=== PATIENT | female | born 1995 | race African-American/Black ===

== ENCOUNTER 2020-03-19 12:41 | Outpatient (CLI) | payer MEDICAID, SELFPAY ==
--- NOTE | ~2020-03-19 | US_ITS ---
EXAMINATION: US OB >= 14 weeks Fetus DATE: 03/19/2020 13:09 INDICATION: dating, unknown trimester, no care TECHNIQUE: Real-time ultrasound of the pelvis was performed. COMPARISON: None. FINDINGS: There is a single living fetus in vertex presentation. The placenta is anterior. heart rate is 147 beats per minute (bpm). cardiac activity and movement are noted. The amniotic fluid index is subjectively normal. The following biometric data were obtained: Biparietal diameter (BPD): 3.79 cm; head circumference (HC): 13.45 cm; abdominal circumference (AC): 10.6 cm; femur length (FL): 2.2 cm. These measurements are concordant. Estimated weight is 167 g +/- 25 g, which correlates with the 11th percentile when 08/24/2020 is used as estimated date of delivery. As single measurements, these parameters are each equal to the following estimated gestational ages w ith ranges of +/- 2 standard deviations: BPD: 17 weeks 4 days +/- 1 weeks 1 days. HC: 17 weeks 0 days +/- 1 weeks 1 days. AC: 16 weeks 4 days +/- 1 weeks 5 days. FL: 16 weeks 6 days +/- 1 weeks 3 days. estimated gestational age based solely on measurements from this exam is 17 weeks 0 days +/- 1 weeks 1 days. IMPRESSION: 1. Single living fetus in vertex presentation. 2. Estimated weight is 167 g +/- 25 g, which correlates with the 11th percentile when 08/24/2020 is used as estimated date of delivery. Reviewed, dictated and finalized at location A. GHT RECEIVER IMPRESSION: 1. Single living fetus in vertex presentation. 2. Estimated weight is 167 g +/- 25 g, which correlates with the 11th per centile when 08/24/2020 is used as estimated date of delivery.
== END 2020-03-19 12:42 | disposition home or self-care (01) ==
PROVIDERS: Visit Provider Physician Assistant
DX: Z34.92 Encounter for supervision of normal pregnancy, unspecified, second trimester (principal); Z3A.17 17 weeks gestation of pregnancy
CPT/HCPCS: 76805

== ENCOUNTER 2020-05-16 14:24 | Outpatient (CLI) | payer OTHER, SELFPAY ==
--- NOTE | ~2020-05-16 | US_ITS ---
EXAMINATION: US OB follow up DATE: 05/16/2020 15:13 INDICATION: Supervision of normal second trimester . TECHNIQUE: Real-time ultrasound of the pelvis was performed. The interpreting radiologist was not pre sent for the study. COMPARISON: 03/19/2020 FINDINGS: There is a single living fetus in breech presentation. The placenta is on the left. heart rate is 155 beats per minute (bpm). The amniotic fluid index is 10.7 cm, which is normal (5th%-95%: 9.7- 22.1 cm at 25 weeks estimated gestational age). The following biometric data were obtained: BPD: 6.2 cm -> 25 weeks 2 days Head circumference: 23.9 cm -> 26 weeks 0 days Abdominal circumference: 21.5 cm -> 26 weeks 0 days Femur length: 4.8 cm -> 26 weeks 0 days These measurements are concordant. Head circumference to abdominal circumference ratio: 1.11 (normal range 1.04-1.22). Estimated weight: 874 g (+/-) 131 g. or 1 lbs. 15 oz. (+/-) 5 oz. IMPRESSION: 1. Single living fetus in breech presentation with heart rate of 155 bpm. 2. Normal amniotic fluid index of 10.7 cm. 3. Estimated weight is 50th percentile by Hadlock criteria when 08/24/2020 is used as the estima armin date of delivery (ELISSA). Please correlate with clinical information or earlier ultrasounds for mos t accurate ELISSA. Reviewed, dictated and finalized at location B. IMPRESSION: 1. Single living fetus in breech presentation with heart rate of 155 bpm. 2. Normal amniotic fluid index of 10.7 cm. 3. Estimated weight is 50th percentile by Hadlock criteria when 08/24/2020 is used as the estimated date of delivery (ELISSA). Please correlate with clinica l information or earlier ultrasounds for most accurate ELISSA.
== END 2020-05-16 14:25 | disposition home or self-care (01) ==
PROVIDERS: Visit Provider Physician Assistant
DX: Z36.9 Encounter for antenatal screening, unspecified (principal); Z3A.00 Weeks of gestation of pregnancy not specified
CPT/HCPCS: 76816

== ENCOUNTER 2020-06-13 12:52 | Outpatient (CLI) | payer OTHER, SELFPAY ==
--- NOTE | ~2020-06-13 | US_ITS ---
EXAMINATION: US OB follow up DATE: 06/13/2020 13:36 INDICATION: Encounter for supervision of normal , third trimester TECHNIQUE: Real-time ultrasound of the pelvis was performed. The interpreting radiologist was not pre sent for the study. COMPARISON: 05/16/2020 FINDINGS: There is a single living fetus in breech presentation. The placenta is anterior/fundal. Fet al cardiac activity and movement are noted. heart rate is 155 beats per minute (bpm). The amniotic fluid index is subjectively normal. The following biometric data were obtained: Biparietal diameter (BPD): 7.7 cm; head circumference (HC): 27.1 cm; abdominal circumference (AC): 25 .6 cm; femur length (FL): 5.6 cm. These measurements are concordant. Estimated weight is 1464 g +/- 219 g, which correlates with the 41st percentile when 08/24/2020 is used as estimated date of delivery. As single measurements, these parameters are each equal to the following estimated gestational ages w ith ranges of +/- 2 standard deviations: BPD: 31 weeks 1 days +/- 3 weeks 1 days. HC: 29 weeks 4 days +/- 2 weeks 0 days. AC: 29 weeks 5 days +/- 2 weeks 1 days. FL: 29 weeks 5 days +/- 2 weeks 1 days. estimated gestational age based solely on measurements from this exam is 30 weeks 0 days +/- 2 weeks 1 days. IMPRESSION: 1. Single living fetus in breech presentation. 2. Estimated weight is 1464 g +/- 219 g, which correlates with the 41st percentile when 08/25/19 21 is used as estimated date of delivery. Reviewed, dictated and finalized at location A. IMPRESSION: 1. Single living fetus in breech presentation. 2. Estimated weight is 1464 g +/- 219 g, which correlates with the 41st p ercentile when 08/24/2020 is used as estimated date of delivery.
== END 2020-06-13 12:53 | disposition home or self-care (01) ==
PROVIDERS: Visit Provider Obstetrics & Gynecology
DX: Z34.93 Encounter for supervision of normal pregnancy, unspecified, third trimester (principal); Z3A.30 30 weeks gestation of pregnancy
CPT/HCPCS: 76816

== ENCOUNTER 2020-06-24 11:25 | Outpatient (RCR) | payer OTHER, SELFPAY | END 2020-09-22 23:59 | disposition home or self-care (01) | LOC: ANHLAB 11:25 | PROVIDERS: Visit Provider Physician Assistant | DX: Z01.83 Encounter for blood typing (principal) | CPT/HCPCS: 36415; 85461 ==

== ENCOUNTER 2020-07-30 15:03 | Outpatient (CLI) | payer OTHER, SELFPAY ==
--- NOTE | ~2020-07-30 | US_ITS ---
US OB limited 07/30/2020 16:12 Indication: Evaluate presentation Procedure: High-resolution Limited obstetrical ultrasound Comparison: No prior studies for comparison. Findings: There is a single living intrauterine in breech presentation with heart rat e of 1 36 bpm. Placenta is anterior/fundal. Amniotic fluid is subjectively normal. Impression: 1: Single living intrauterine in breech presentation. Reviewed, dictated and finalized at location B. Impression: 1: Single living intrauterine in breech presentation.
== END 2020-07-30 15:04 | disposition home or self-care (01) ==
LOC: ANHIMG 15:05
PROVIDERS: Visit Provider Physician Assistant
DX: O32.9XX9 Maternal care for malpresentation of fetus, unspecified, other fetus (principal); Z3A.00 Weeks of gestation of pregnancy not specified
CPT/HCPCS: 76815

== ENCOUNTER 2020-08-14 08:35 | Outpatient (RCR) | payer OTHER, SELFPAY ==
--- NOTE | ~2020-08-14 | US_ITS ---
EXAMINATION: US OB follow up w BPP EXAM DATE: 08/14/2020 10:10 INDICATION: Breech, SERGO, BPP and EFW. 3rd trimester. TECHNIQUE: Pelvic obstetrical transabdominal sonogram was performed by a technologist. There are mu ltiple grayscale and Doppler images available for interpretation. Comparison is made to prior examina tion from 07/30/2020. FINDINGS: There is a single fetus identified in breech presentation with a heart rate of 145 beats pe r minute. The placenta is located in the anterior fundal position. There is no sonographic evidence of retroplacental hemorrhage identified. The amniotic fluid index is 16.7 centimeters, which is cameron l. BIOMETRIC DATA: Biparietal diameter (BPD): 9.3 cm --------------> 37 weeks 4 days. Head circumference (HC): 34.8 cm ---------------> 40 weeks 2 days. Abdominal circumference (AC): 34.8 cm ---------> 38 weeks 5 days. Femur length (FL): 7.5 cm ------------------------> 38 weeks 2 days. These measurements are concordant. HC/AC ratio is 1.00 (The 5th -- 95th percentile range is 0.88-1.06. Estimated weight is 3549 g +/- 532 g. This is the 75th percentile when the currently reported clinical gestation age 38 weeks 1 day, clinical estimated date of delivery (ELISSA-OPE) 08/27 is used. Fe vicki estimated gestational age based on measurements from this exam is 38 weeks 5 days, with an estima armin date of delivery (ELISSA-AUA) 08/23. BIOPHYSICAL PROFILE (performed by the technologist) breathing (30 sec sustained breathing in 30 minutes): 2 out of 2 movement (3 gross body movements in 30 minutes): 2 out of 2 tone (one episode of npqvrls-okwmscfvk-ysqdoru limb movement): 2 out of 2 Amniotic fluid pocket (2 cm): 2 out of 2 Total score: 8 out of 8 IMPRESSION: 1. Single fetus with heart rate of 145 bpm. 2. Normal biophysical profile score of 8 out of 8. 3. Estimated weight 3549, 75th percentile using clinical gestational age 38 weeks 1 day. 4. Normal SERGO 16.7 cm. Reviewed, dictated and finalized at location B.
[2020-08-14 09:26] VITALS: BP 99/53; PULSE 101
--- NOTE | 2020-08-14 10:34 | PC.NURSE ---
US results called to Dr Migule
[2020-08-25] MEDS: ceFAZolin SODIUM 1 GM VIAL 2 GM IV PUSH (08:22)
== END 2020-08-23 09:09 | disposition home or self-care (01) ==
LOC: ANHOBOP 08:35
PROVIDERS: Obstetrics & Gynecology; Visit Provider Obstetrics & Gynecology
PROC: 0UT94ZZ Resection of Uterus, Percutaneous Endoscopic Approach (ICD-10-PCS; principal; 2020-08-25 08:00)
DX: O32.1XX0 Maternal care for breech presentation, not applicable or unspecified (principal); Z3A.38 38 weeks gestation of pregnancy
CPT/HCPCS: 59025; 76816; 76819

== ENCOUNTER 2020-08-20 11:20 | Outpatient (CLI) | payer OTHER, SELFPAY ==
--- NOTE | ~2020-08-20 | US_ITS ---
EXAMINATION: US OB limited DATE: 08/20/2020 11:46 INDICATION: Breech presentation during third trimester of . TECHNIQUE: Real-time ultrasound of the pelvis was performed. The interpreting radiologist was not pre sent for the study. COMPARISON: 08/14/2020 FINDINGS: There is a single living fetus remains in breech presentation. The placenta is anterior fundal. Feta l heart rate is 157 beats per minute (bpm). IMPRESSION: 1. Single living fetus in breech presentation with heart rate of 157 bpm. Reviewed, dictated and finalized at location A.
== END 2020-08-20 11:21 | disposition home or self-care (01) ==
PROVIDERS: Visit Provider Physician Assistant
DX: O32.1XX9 Maternal care for breech presentation, other fetus (principal); Z3A.00 Weeks of gestation of pregnancy not specified
CPT/HCPCS: 76815

== ENCOUNTER 2020-08-22 09:57 | Inpatient (IN) | payer OTHER, SELFPAY ==
[2020-08-22] VITALS (54 sets, daily range): BP systolic 80–126; BP diastolic 52–91; PULSE 64–113; RESP 13–18; TEMP 36.3–37.6; O2SAT 97–100; BMI 25.7
--- NOTE | 2020-08-22 09:37 | WPDANESEPPF ---
Anes - Initial Pre Proc Eval Procedure: Operation Date: 08/22/20 12:00 Proposed Procedures p Section - Zeus Dash MD Date/Time: 08/22/20 09:37 Surgeon: Ekta Pre Op Diagnosis: c/s Patient Data Age: 24 Gender: F Height: Weight: Allergies Allergy/AdvReac Type Severity Reaction Status Date / Time No Known Allergies Allergy Verified 08/01/20 12:43 Home Medications Medication Instructions Recorded Confirmed Type PNV cmb#95-ferrous fumarate-FA 1 tablet PO DAILY 08/01/20 08/22/20 History [] ferrous sulfate [Iron (ferrous 325 mg PO DAILY 08/01/20 08/22/20 History sulfate)] omeprazole [Prilosec] 20 mg PO DAILY 08/01/20 08/22/20 History valacyclovir 1,000 mg PO DAILY 08/01/20 08/22/20 History docusate sodium [Colace] 100 mg PO DAILY 08/22/20 08/22/20 History Patient hx anesthesia problems: none Family hx anesthesia problems: none PMFSH Past Medical History Medical History (Updated 08/22/20 @ 10:50 by Shane Crooks DO) GERD (gastroesophageal reflux disease) History of supraventricular tachycardia Palpitations Family History Family History (Updated 08/22/20 @ 10:40 by Pau Weeks RN) Mother Cancer Hypothyroid Father Cancer Social History Social History Substance use: never Gender identity (if verbalized by the patient): Female Spiritual care concerns: No Anes - Eval Final PreProcedure Day of Procedure 08/22/20 09:37 Patient weight: overweight Heart: regular rate and rhythm Lungs: clear to auscultation and normal air movement Airway: Mallampati scale class II Neurological: alert and oriented Last oral intake: >/= 8 hours ASA classification: III Emergent: no Anesthetic plan: proceed Anesthesia type and monitoring: regional spinal and standard monitoring Informed Consent: The patient's anesthetic plan and its attendant risks and benefits were discussed with the patient/family/POA. Questions were solicited and answers provided to the satisfaction of the patient/family/POA.
[2020-08-22] MEDS: LACTATED RINGERS 1,000 ML 125 ML IV CONT ×2 (10:29→11:42)
--- NOTE | 2020-08-22 10:34 | LDADM ---
This patient, Nataly Bruno, was admitted to OB Post 115 on 08/22/20 at 09:57. Plans for labor, pain management and were discussed with patient. Patient/family oriented to hospital policies and general routines including ID bracelet, bed and alarms, visiting hours, pain management, procedures, bathroom and other care routines, personal items, smoking policy, room service/diet and guest tray routines, security routines, and visiting hours. Patient/Family are encouraged to report perceived risks to care and to ask questions if they do not understand what they are told or what they should do. See OBIX for further documentation.
[2020-08-22 10:46] LABS: Basophils Percent Auto 0.3 % (0.2-1.2); Eosinophils Percent Auto 0.3 % (0-4.4); Hematocrit 35.9 % (37.0-47.0); Hemoglobin 11.4 g/dL (12.0-15.0); Immature Granulocyte Absolute 0.06 K/mm3 (0.00-0.031); Immature Granulocyte Percent A 0.7 % (0-0.5); Lymphocytes Absolute Auto 1.47 K/mm3 (0.9-3.2); Lymphocytes Percent Auto 16.4 % (18.3-44.2); Mean Corpuscular HGB Conc 31.8 g/dl (32-36); Mean Corpuscular Hemoglobin 23.9 pg (26-34); Mean Corpuscular Volume 75.4 fl (80-100); Mean Platelet Volume 10.3 fl (7.4-10.4); Monocytes Absolute Auto 0.9 K/mm3 (0.1-0.6); Monocytes Percent Auto 10.1 % (2.6-8.5); Neutrophils Absolute Auto 6.5 K/mm3 (1.3-6.7); Neutrophils Percent Auto 72.2 % (45.5-73.1); Platelet Count Result 283 k/mm3 (150-375); Red Blood Count 4.76 M/mm3 (4.2-5.4); Red Cell Distribution Width 19.7 % (11.5-14.5); White Blood Count 8.9 K/mm3 (4.5-10.0)
--- NOTE | 2020-08-22 10:51 | PC.NURSE ---
Anesthesia has been in to talk to pt. Dr. Dash here now. monitor discontinued. Bedside U/S confirms breech presentation.
--- NOTE | 2020-08-22 10:59 | PM.IMHP ---
H&P: HPI History of Present Illness Date/Time: 08/22/20 10:59 24-year-old 2 para 1001 female presents for section due to breech presentation. Prior vaginal delivery without complication. This also without complication other than breech presentation. Chief Complaint: Review of Systems Review of Systems: All systems reviewed & are unremarkable except as noted in HPI and below PMFSH Past Medical History Medical History GERD (gastroesophageal reflux disease) History of supraventricular tachycardia Palpitations Family History Family History Mother Cancer Hypothyroid Father Cancer Social History Social History Substance use: never Gender identity (if verbalized by the patient): Female Spiritual care concerns: No Meds Home Medications and Allergies Home Medications Medication Instructions Recorded Confirmed Type PNV cmb#95-ferrous fumarate-FA 1 tablet PO DAILY 08/01/20 08/22/20 History [] ferrous sulfate [Iron (ferrous 325 mg PO DAILY 08/01/20 08/22/20 History sulfate)] omeprazole [Prilosec] 20 mg PO DAILY 08/01/20 08/22/20 History valacyclovir 1,000 mg PO DAILY 08/01/20 08/22/20 History docusate sodium [Colace] 100 mg PO DAILY 08/22/20 08/22/20 History Allergies Allergy/AdvReac Type Severity Reaction Status Date / Time No Known Allergies Allergy Verified 08/01/20 12:43 Vital Signs Vital Signs - 24 hr 08/22/20 10:34 08/22/20 10:46 Pulse Rate 106 H 105 H Blood Pressure 105/67 114/65 Exam Const: General: cooperative and healthy appearing Resp: Effort & Inspection: normal respiratory effort Auscultation: clear to auscultation bilaterally Cardio: Rate: regular rate Rhythm: regular rhythm : Bimanual exam- vagina & uterus: enlarged ( Fundal height 40cm heart tones 140 breech by [facility] and confirmed ) H&P: Results Labs Labs: Short CBC 08/22/20 Range/Units 10:27 WBC 8.9 (4.5-10.0) K/mm3 Hgb 11.4 L (12.0-15.0) g/dL Hct 35.9 L (37.0-47.0) % Plt Count 283 (150-375) k/mm3 Assessment and Plan Assessment and plan (1) 39 weeks gestation of : Code(s): Z3A.39 - 39 weeks gestation of Status: Acute (2) Breech presentation: Code(s): O32.1XX0 - Maternal care for breech presentation, not applicable or unspecified Status: Acute Additional Plan proceed with primary low transverse section.
--- NOTE | 2020-08-22 11:01 | WPDHPUPDATE1 ---
History and Physical Update Update Date/Time: 08/22/20 11:01 History and Physical has been reviewed, including an updated exam of the patient. There are NO changes in the patient's condition. Risks, benefits, and alternatives have been discussed and questions answered. Patient agrees to proceed with procedure.
[2020-08-22] MEDS: KETOROLAC 30 MG/ML VIAL (*BKC) IV PUSH (12:56)
--- NOTE | 2020-08-22 13:11 | PM.OBPRVD ---
OB - Delivery Note Procedure Procedure: Procedures Operation Date: 08/22/20 12:00 <No data on this case meets the specified criteria> Route of delivery: Indication for instrumentation: other (Breech presentation) Specimen: No Quantitative Blood Loss (ml): 1,600 Anesthesia type: Spinal Disposition: floor Narrative: patient prepped and draped in usual manner for this procedure. Pfannenstiel incision was made which was carried down to the fascia and extended bilaterally the length of the skin incision. Superiorly and inferiorly dissected away from the rectus muscles which were then bluntly dissected peritoneum was entered and the bladder flap was developed. Uterus scored clear fluid was noted and footling breech was delivered without difficulty with nuchal cord noted x2. Placenta removed manually and uterus was exteriorized cleared of membranes and clots and closed using 0 Monocryl in a running interlocking manner for approximation hemostasis noted. Uterus was returned to the abdomen gutters were cleared of serosanguineous fluid and clots and all subfascial tissue was noted be hemostatic. Fascia was approximated from the left angle to midline and right of the midline 0 Vicryl in running manner. Subcutaneous tissue was irrigated cauterized and approximated using 0 plain suture. René were then used to approximate the skin edges and the patient sent cuff room in stable condition. Baby Weeks of gestation at delivery: 39 gender: Female Weight (pounds): 7 Weight (ounces): 15 presentation: breech score one minute: 8 score five minutes: 9
[2020-08-22] MEDS: OXYTOCIN 30 UNITS/NS 500 ML 30 UNITS/500 ML BAG 125 UNITS IV CONT (14:16)
[2020-08-22] MEDS: MORPHINE SULFATE (*CRX) 2 MG/ML INJ IV PUSH (14:43)
[2020-08-22] MEDS: ONDANSETRON INJ 4 MG/2 ML VIAL IV PUSH (19:14)
[2020-08-22] MEDS: DEXTROSE 5%/0.45% SOD CHL 1,000 ML 125 ML IV CONT (19:14)
[2020-08-22 21:00] LABS: Hematocrit 22.6 % (37.0-47.0); Hemoglobin 7.1 g/dL (12.0-15.0)
--- NOTE | 2020-08-22 22:08 | PC.NURSE ---
1728 Pt admitted to room 283 from labor and delivery after primary delivery of viable female infant for breech presentation; delivery performed by Dr. Dash. Mother is a and is choosing to breast feed; FOB present. Couple oriented to room, staffing and procedures; assessment and VS, WNL.
[2020-08-22] MEDS: SIMETHICONE 80 MG TAB.CHEW PO (22:37)
[2020-08-23] VITALS (16 sets, daily range): BP systolic 75–100; BP diastolic 43–67; PULSE 99–130; RESP 14–18; TEMP 36.4–37.3; O2SAT 98–100
[2020-08-23 04:16] LABS: Basophils Percent Auto 0.1 % (0.2-1.2); Hematocrit 22.2 % (37.0-47.0); Hemoglobin 7.1 g/dL (12.0-15.0); Immature Granulocyte Absolute 0.05 K/mm3 (0.00-0.031); Immature Granulocyte Percent A 0.4 % (0-0.5); Lymphocytes Absolute Auto 1.26 K/mm3 (0.9-3.2); Lymphocytes Percent Auto 9.1 % (18.3-44.2); Mean Corpuscular Hemoglobin 24.7 pg (26-34); Mean Corpuscular Volume 77.1 fl (80-100); Mean Platelet Volume 10.8 fl (7.4-10.4); Monocytes Absolute Auto 1.3 K/mm3 (0.1-0.6); Monocytes Percent Auto 9.2 % (2.6-8.5); Neutrophils Absolute Auto 11.2 K/mm3 (1.3-6.7); Neutrophils Percent Auto 81.2 % (45.5-73.1); Platelet Count Result 230 k/mm3 (150-375); Red Blood Count 2.88 M/mm3 (4.2-5.4); Red Cell Distribution Width 18.8 % (11.5-14.5); White Blood Count 13.8 K/mm3 (4.5-10.0)
--- NOTE | 2020-08-23 04:39 | PC.NURSE ---
Contacted Dr Dash 08/22/20 @ 2043 in regards to patients low blood pressure of 80/56 and pt is very lethargic. He ordered a stat H&H, 1L bolus. He called back at 2157 to check on the H&H which went from 11.4 to a 7.1. Told doctor that patient felt a little dizzy, he ordered to leave her in bed for the night and continue to monitor pt. He will be in at 0700 to see patients so there is no need to call him with the lab results. Patient has felt better the majority of the night with spells of fatigue. Blood pressures have remained in the 80's/50's. While assessing pt for her 399 assessment she was sitting up in bed, wide awake and stated she felt much better although her blood pressure remained at 80/52. Will continue to monitor and pass along in day report.
--- NOTE | 2020-08-23 07:13 | P.PNOB_ITS ---
OB - PN: Subj Subjective Date/time seen: 08/23/20 07:13 A been out of bed yet this morning though overall feels well. Had an episode of lethargy and lightheaded this last night which has resolved. OB - PN: Obj Data Labs CBC & Chem 7: 08/23/20 04:05 Labs: Laboratory Results - last 24 hr 08/22/20 08/22/20 08/22/20 10:27 10:27 20:54 WBC 8.9 RBC 4.76 Hgb 11.4 L 7.1 L D Hct 35.9 L 22.6 L MCV 75.4 L MCH 23.9 L MCHC 31.8 L RDW 19.7 H Plt Count 283 MPV 10.3 Immature Gran % (Auto) 0.7 H Neut % (Auto) 72.2 Lymph % (Auto) 16.4 L Custer % (Auto) 10.1 H Eos % (Auto) 0.3 Baso % (Auto) 0.3 Lymph # (Auto) 1.47 Custer # (Auto) 0.9 H Eos # (Auto) 0.0 Baso # (Auto) 0.0 Abs Immat Gran (auto) 0.06 H Absolute Neuts (auto) 6.5 Absolute Nucleated RBC 0.0 Nucleated RBC % 0.0 Blood Type O Negative Antibody Screen Negative Screen Baby's Blood Type Baby's AXEL Doses of RhIg Required 08/23/20 08/23/20 04:05 05:46 WBC 13.8 H RBC 2.88 L Hgb 7.1 L Hct 22.2 L MCV 77.1 L MCH 24.7 L MCHC 32.0 RDW 18.8 H Plt Count 230 MPV 10.8 H Immature Gran % (Auto) 0.4 Neut % (Auto) 81.2 H Lymph % (Auto) 9.1 L Custer % (Auto) 9.2 H Eos % (Auto) 0.0 Baso % (Auto) 0.1 L Lymph # (Auto) 1.26 Custer # (Auto) 1.3 H Eos # (Auto) 0.0 Baso # (Auto) 0.0 Abs Immat Gran (auto) 0.05 H Absolute Neuts (auto) 11.2 H Absolute Nucleated RBC 0.0 Nucleated RBC % 0.0 Blood Type O Negative Antibody Screen Negative Screen Negative Baby's Blood Type O pos Baby's AXEL Negative Doses of RhIg Required 1 OB - PN A/P Assessment and Plan (1) Acute blood loss as cause of postoperative anemia: Code(s): D62 - Acute posthemorrhagic anemia Status: Acute Assessment and Plan: discussed with patient increase blood loss with surgery and drop in her hematocrit. Also stability of the same is noted. We discussed depending how she feels once she begins ambulating today whether she will need any transfusion or not. But at this point patient is aware and receptive to the idea this is necessary. Time Spent With Patient Time: Total time spent is greater than 50% in coordination of care (as documented) at patient's floor/unit and/or counseling patient: Exam Narrative: Exam Narrative: abdomen soft nondistended. Incision with bandage which is clean and dry.
[2020-08-23] MEDS: DEXTROSE 5%/0.45% SOD CHL 1,000 ML 125 ML IV CONT (08:25)
--- NOTE | 2020-08-23 08:56 | WPDANLDPN2 ---
Anes-Prog Note L&D Date/Time: 08/23/20 08:56 Comfortable throughout: section Neuraxial method: spinal Epidural/Spinal procedure site: clean & non-tender Neuro status: Neuro function grossly intact. Cardiovascular status: normal Respiratory status: normal Airway patency: baseline Mental status: baseline Post-Op hydration status: normal Vital Signs: Last Vital Signs Temp 36.4 C L 08/23/20 04:33 Pulse 105 H 08/23/20 04:33 Resp 14 08/23/20 04:33 BP 80/52 L 08/23/20 04:33 Pulse Ox 98 08/23/20 04:33 Pain score (VAS): 02/17 I/O: Intake & Output 08/22/20 08/23/20 08/23/20 23:59 07:59 15:59 Intake Total 1000 Output Total 425 Balance 575 Post-procedural complaints: none Patient feedback: Patient satisfied with anesthetic care.
--- NOTE | 2020-08-23 08:56 | WPDANLDNPN2 ---
Anes-Prog Note L&D-Neuraxial Date/Time: 08/23/20 08:56 Neuraxial medications: intrathecal PF morphine Opiod-related complaints: none Patient feedback: Patient satisfied with post-operative pain management.
[2020-08-23] MEDS: SODIUM CHLORIDE 0.9% IV 250 ML 30 ML IV CONT (10:00)
[2020-08-23] MEDS: POLYSACCHARIDE IRON COMPLEX 150 MG CAPSULE PO ×2 (11:17→16:07)
[2020-08-23] MEDS: IBUPROFEN 600 MG TABLET PO (11:17)
[2020-08-23] MEDS: DOCUSATE SODIUM 100 MG CAPSULE PO ×2 (11:17→16:07)
--- NOTE | 2020-08-23 12:40 | PC.NURSE ---
Consult with pt., mother states she is mostly bottle feeding due to issues with large blood loss after delivery. Discussed how a large blood loss may impact/delay milk supply. Discussed initiating pumping to stimulate supply. Mother states for now she will put infant to breast most feedings and supplement. Mother did breastfeed first child and states she feels comfortable with latching, the few times has been to breast, she reports was eager and fed without difficulties or discomfort. Offered assist with setting up a hospital pump. Mother states if she feels up to it she will call out.
[2020-08-23 12:56] LABS: Rapid Plasma Reagin Non-Reactive (NonReactive)
[2020-08-23] MEDS: ACETAMINOPHEN 325 MG TABLET 650 MG PO (13:09)
--- NOTE | 2020-08-23 19:49 | PC.NURSE ---
Pt. up to chair at 0745. At 0815 helped yelled out for assistance. Pt. was found unresponsive in chair. Pt. had been running low BP's during the night following large QBL. Pt. responded to stimuli and was able to return to bed. BP remained low but consistent with previous readings. Pt. stated she was feeling better. was notified and order to transfuse blood was received.
[2020-08-23] MEDS: HYDROcodone/acetaminophen (*CRX) 5-325 MG TABLET 1 TAB PO (22:31)
[2020-08-23] MEDS: SIMETHICONE 80 MG TAB.CHEW PO (22:38)
[2020-08-24] VITALS: BP 103/62; PULSE 102; RESP 20; TEMP 36.8; O2SAT 100
[2020-08-24] MEDS: IBUPROFEN 600 MG TABLET PO ×2 (05:21→14:18)
[2020-08-24 06:05] LABS: Mean Corpuscular HGB Conc 33.2 g/dl (32-36); Mean Corpuscular Hemoglobin 25.9 pg (26-34); Mean Corpuscular Volume 78.2 fl (80-100); Mean Platelet Volume 10.3 fl (7.4-10.4); Platelet Count Result 225 k/mm3 (150-375); Red Blood Count 2.66 M/mm3 (4.2-5.4); Red Cell Distribution Width 18.4 % (11.5-14.5); White Blood Count 14.3 K/mm3 (4.5-10.0)
[2020-08-24 06:10] LABS: Hematocrit 20.8 % (37.0-47.0); Hemoglobin 6.9 g/dL (12.0-15.0)
--- NOTE | 2020-08-24 08:51 | PM.OBPNVD ---
OB - PN: Subj Subjective Date/time seen: 08/24/20 08:51 Patient is ambulating voiding and is tolerating regular diet. She denies shortness of breath chest pain or dizziness on ambulation though is still fairly cough abdominal area. No significant bleeding. OB - PN: Obj Data Labs CBC & Chem 7: 08/24/20 05:14 Labs: Laboratory Results - last 24 hr 08/22/20 08/23/20 08/24/20 10:27 05:46 05:14 WBC 14.3 H RBC 2.66 L Hgb 6.9 L* Hct 20.8 L* MCV 78.2 L MCH 25.9 L MCHC 33.2 RDW 18.4 H Plt Count 225 MPV 10.3 RPR Non-reactive Blood Type O Negative Antibody Screen Negative Screen Negative Baby's Blood Type O pos Baby's AXEL Negative Doses of RhIg Required 1 Crossmatch See Detail OB - PN A/P Assessment and Plan (1) Acute blood loss as cause of postoperative anemia: Code(s): D62 - Acute posthemorrhagic anemia Status: Acute Assessment and Plan: Patient at this point is clinically stable and showing no signs of ongoing bleeding. did not have the expected increase in her blood count after 2units of packed red blood cells yesterday that we would have expected. I have discussed this with the patient and her and we will continue to monitor blood count as well as potentially perform some imaging later today. At this point with her clinically stable will continue to monitor. Questions answered and patient has been are aware of plan and in agreement with current plan of care. Time Spent With Patient Time: Total time spent is greater than 50% in coordination of care (as documented) at patient's floor/unit and/or counseling patient: Exam Narrative: Exam Narrative: Abdomen with positive bowel sounds in minimally distended. Tender throughout though appropriately uncomfortable around the incisional site and lower abdominal exam. No guarding or rebound appreciated.
[2020-08-24] MEDS: POLYSACCHARIDE IRON COMPLEX 150 MG CAPSULE PO ×2 (09:30→17:00)
[2020-08-24] MEDS: MULTIVIT/MIN/PREN/FOL AC/IRON TABLET 1 TAB PO (09:30)
[2020-08-24] MEDS: ACETAMINOPHEN 325 MG TABLET 650 MG PO (09:31)
[2020-08-24] MEDS: DOCUSATE SODIUM 100 MG CAPSULE PO ×2 (09:31→17:00)
[2020-08-24] MEDS: PANTOPRAZOLE 40 MG TABLET PO (09:32)
[2020-08-24] MEDS: RHO(D) IMMUNE GLOBULIN 300 MCG/2 ML SYRINGE IM (11:36)
[2020-08-24 12:33] LABS: Mean Corpuscular HGB Conc 32.5 g/dl (32-36); Mean Corpuscular Hemoglobin 25.9 pg (26-34); Mean Corpuscular Volume 79.5 fl (80-100); Mean Platelet Volume 9.6 fl (7.4-10.4); Platelet Count Result 228 k/mm3 (150-375); Red Blood Count 2.59 M/mm3 (4.2-5.4); Red Cell Distribution Width 18.7 % (11.5-14.5); White Blood Count 15.2 K/mm3 (4.5-10.0)
[2020-08-24 12:38] LABS: Hematocrit 20.6 % (37.0-47.0)
[2020-08-24 12:39] LABS: Hemoglobin 6.7 g/dL (12.0-15.0)
[2020-08-24 12:40] VITALS: BP 119/71; PULSE 110; RESP 18; TEMP 37.1; O2SAT 100
[2020-08-24 16:00] VITALS: BP 118/72; PULSE 110; RESP 20; TEMP 36.9; O2SAT 100
[2020-08-24] MEDS: HYDROcodone/acetaminophen (*CRX) 5-325 MG TABLET 1 TAB PO (17:02)
[2020-08-24 19:45] VITALS: BP 106/74; PULSE 105; RESP 15; TEMP 36.8; O2SAT 100
[2020-08-25] VITALS (26 sets, daily range): BP systolic 110–131; BP diastolic 65–88; PULSE 71–109; RESP 14–22; TEMP 36.4–37.3; O2SAT 98–100
[2020-08-25] MEDS: HYDROcodone/acetaminophen (*CRX) 5-325 MG TABLET 1 TAB PO ×3 (03:07→22:21)
[2020-08-25] MEDS: IBUPROFEN 600 MG TABLET PO ×2 (03:08→16:33)
[2020-08-25 05:38] LABS: Mean Corpuscular HGB Conc 32.7 g/dl (32-36); Mean Corpuscular Hemoglobin 26.3 pg (26-34); Mean Corpuscular Volume 80.3 fl (80-100); Mean Platelet Volume 9.7 fl (7.4-10.4); Platelet Count Result 239 k/mm3 (150-375); Red Blood Count 2.13 M/mm3 (4.2-5.4); Red Cell Distribution Width 19.1 % (11.5-14.5); White Blood Count 11.1 K/mm3 (4.5-10.0)
[2020-08-25 05:42] LABS: Hemoglobin 5.6 g/dL (12.0-15.0)
[2020-08-25 05:44] LABS: Hematocrit 17.1 % (37.0-47.0)
[2020-08-25] MEDS: SODIUM CHLORIDE 0.9% IV 1,000 ML 125 ML (07:36)
--- NOTE | 2020-08-25 07:54 | P.PNOB_ITS ---
OB - PN: Subj Subjective Date/time seen: 08/25/20 07:54 OB - PN: Obj Data Labs CBC & Chem 7: 08/25/20 05:32 Labs: Laboratory Results - last 24 hr 08/23/20 08/24/20 08/25/20 05:46 12:25 05:32 WBC 15.2 H 11.1 H RBC 2.59 L 2.13 L Hgb 6.7 L* 5.6 L* Hct 20.6 L* 17.1 L* MCV 79.5 L 80.3 MCH 25.9 L 26.3 MCHC 32.5 32.7 RDW 18.7 H 19.1 H Plt Count 228 239 MPV 9.6 9.7 Blood Type O Negative Antibody Screen Negative Screen Negative Baby's Blood Type O pos Baby's AXEL Negative Doses of RhIg Required 1 Crossmatch See Detail OB - PN A/P Assessment and Plan (1) Acute blood loss as cause of postoperative anemia: Code(s): D62 - Acute posthemorrhagic anemia Status: Acute Assessment and Plan: Patient at this point is stable clinically. Her counts continue to drop and at this point feel the intervention is necessary. I have discussed with the patient at her at length that we could continue to transfuse and monitor or proceed with laparotomy likely evacuation hematoma and hemostasis of any bleeders that are encountered. They agree with plan of proceeding with exploration and surgical intervention. We will proceed this morning once anesthesia and OR team can be present. Time Spent With Patient Time: Total time spent is greater than 50% in coordination of care (as d ocumented) at patient's floor/unit and/or counseling patient:
--- NOTE | 2020-08-25 07:57 | WPDHPUPDATE1 ---
History and Physical Update Update Date/Time: 08/25/20 07:57 See progress note from today for explanation of surgery. History and Physical has been reviewed, including an updated exam of the patient. There are NO changes in the patient's condition. Risks, benefits, and alternatives have been discussed and questions answered. Patient agrees to proceed with procedure.
--- NOTE | 2020-08-25 08:17 | WPDANESEPPF ---
Anes - Initial Pre Proc Eval Procedure: Operation Date: 08/22/20 12:00 Proposed Procedures p Section - Zeus Dash MD Date/Time: 08/25/20 08:17 Surgeon: Zeus Dash MD Pre Op Diagnosis: c/s Patient Data Age: 24 Gender: F Height: 1.65 m Weight: 70 kg Last Vital Signs Temp 36.8 C 08/24/20 19:45 Pulse 105 H 08/24/20 19:45 Resp 15 08/24/20 19:45 BP 106/74 08/24/20 19:45 Pulse Ox 100 08/24/20 19:45 Allergies Allergy/AdvReac Type Severity Reaction Status Date / Time No Known Allergies Allergy Verified 08/01/20 12:43 Home Medications Medication Instructions Recorded Confirmed Type PNV cmb#95-ferrous fumarate-FA 1 tablet PO DAILY 08/01/20 08/22/20 History [] ferrous sulfate [Iron (ferrous 325 mg PO DAILY 08/01/20 08/22/20 History sulfate)] omeprazole [Prilosec] 20 mg PO DAILY 08/01/20 08/22/20 History valacyclovir 1,000 mg PO DAILY 08/01/20 08/22/20 History docusate sodium [Colace] 100 mg PO DAILY 08/22/20 08/22/20 History Laboratory Tests 08/23/20 08/24/20 08/25/20 05:46 12:25 05:32 WBC 15.2 K/mm3 H K/mm3 11.1 K/mm3 H K/mm3 (4.5-10.0) (4.5-10.0) RBC 2.59 M/mm3 L M/mm3 2.13 M/mm3 L M/mm3 (4.2-5.4) (4.2-5.4) Hgb 6.7 g/dL L* g/dL 5.6 g/dL L* g/dL (12.0-15.0) (12.0-15.0) Hct 20.6 % L* % 17.1 % L* % (37.0-47.0) (37.0-47.0) MCV 79.5 fl L fl 80.3 fl fl (80-100) (80-100) MCH 25.9 pg L pg 26.3 pg pg (26-34) (26-34) MCHC 32.5 g/dl g/dl 32.7 g/dl g/dl (32-36) (32-36) RDW 18.7 % H % 19.1 % H % (11.5-14.5) (11.5-14.5) Plt Count 228 k/mm3 k/mm3 239 k/mm3 k/mm3 (150-375) (150-375) MPV 9.6 fl fl 9.7 fl fl (7.4-10.4) (7.4-10.4) Blood Type O Negative Antibody Screen Negative Screen Negative Baby's Blood Type O pos Baby's AXEL Negative Doses of RhIg Required 1 Crossmatch See Detail Patient hx anesthesia problems: none Family hx anesthesia problems: none PMFSH Past Medical History Medical History GERD (gastroesophageal reflux disease) History of supraventricular tachycardia Palpitations Family History Family History Mother Cancer Hypothyroid Father Cancer Social History Social History Smoking status: Never smoker Second hand tobacco smoke exposure: No Substance use: never Gender identity (if verbalized by the patient): Female Spiritual care concerns: No Anes - Eval Final PreProcedure Day of Procedure 08/25/20 08:17 Patient weight: normal Heart: regular rate and rhythm Lungs: clear to auscultation and normal air movement Airway: Mallampati scale class II Neurological: alert and oriented Last oral intake: >/= 8 hours ASA classification: III Emergent: yes Anesthetic plan: proceed Anesthesia type and monitoring: general ETT Informed Consent: The patient's anesthetic plan and its attendant risks and benefits were discussed with the patient/family/POA. Questions were solicited and answers provided to the satisfaction of the patient/family/POA.
--- NOTE | 2020-08-25 09:48 | PM.OP ---
Procedure Note - Brief Procedure Note - Brief Date of procedure: 08/25/20 Pre-op diagnosis: c/s Postoperative anemia Post-op diagnosis: same ( plus postoperative hematoma) Procedure performed: 1. Exploratory laparotomy 2. Evacuation of hematoma 3. Cauterization of multiple small bleeding areas Description of procedure: patient was prepped in usual manner for this procedure and the maritn from the prior surgery removed subcutaneous tissue was opened and old suture was removed. There was a minimal amount of oozing from the subcutaneous space. Fascia was then opened by removing the suture. Once this was done hematoma was noted and the bladder flap area. Upon initial inspection there were no significant bleeders though multiple small areas of oozing were identified. Once the fascia was opened the uterus was delivered from the abdomen and the uterine incision inspected which again was hemostatic. The uterus was slightly boggy and due to the bleeding issue she had had the uterine incision was then opened in its entirety. Irrigation was undertaken and small amount of bleeding was removed from the uterus. The uterine incision was then reclosed using 0 Monocryl running interlocking manner with good approximation and hemostasis noted. One small area of oozing on the right edge was rendered hemostatic using a [id number] suture of the 0 Monocryl. Bladder flap was then further evaluated with minimal bleeding though there were some raw areas which were oozing. These were cauterized and monitored and were no longer bleeding. Frank was placed and the bladder flap area the uterus was returned to the abdomen gutters were flared cleared of single segments fluid and clots. It was uterine incision again inspected with no active bleeding bladder flap again inspected with no active bleeding all subfascial tissue was noted evaluated and no bleeding. Fascia was approximated using 0 Vicryl from the left angle midline and from the right angle to midline in a running manner. Subcutaneous tissue thoroughly inspected and irrigated. There were no bleeders and the skin edges were then approximated using martin once 0 plain was used to approximate the deep tissue in the subcutaneous area. The patient with them sent to the recovery room where she will be receiving 2units of packed red blood cells to be followed by 2units of pack red blood cells postoperatively on unit. Anesthesia: GETA Surgeon: Zeus Dash MD Estimated blood loss (mL): 300 Urine output (mL): 200 Drains: Yes Packing: No Pathology: none sent Complications: No immediate complications Condition: stable Disposition: PACU Findings: 1. 500cc hematoma ( see operative note for full details)
[2020-08-25] MEDS: LACTATED RINGERS 1,000 ML 30 ML IV CONT ×2 (09:52)
--- NOTE | 2020-08-25 11:19 | SUR.PHASEI ---
1049-AFTER SPEAKING WITH KNOTTING MACHINE OPERATOR PORTABLE, PETER RE: PC INFUSION AND DELAY IN CHARTING R/T PROFILE ISSUE, SPOKE WITH DR. PERRY, REPORTED PT VS, PAINFREE STATUS, DRY DRESSING, 1 CLOT ON PERIPAD DURING PACU STAY, NONE FURTHER, INSTRUCTED PT MAY GET ALL 4 UNITS OF PC IN OB AREA TODAY. WILL NOTIFY [facility] IN OB AWARE AND WILL PREPARE TO TRANSPORT PT. 1115-ASSESSMENT OF DRESSING AND PERIPAD WITH OB NURSE, RN HAS NO FURTHER NEEDS FROM PACU STAFF.
[2020-08-25] MEDS: HYDROmorphone HCL INJ (*CRX) 1 MG/ML SYR IV PUSH (11:33)
[2020-08-25] MEDS: SODIUM CHLORIDE 0.9% IV 250 ML 30 ML ×2 (11:33→17:48)
[2020-08-25] MEDS: POLYSACCHARIDE IRON COMPLEX 150 MG CAPSULE PO (16:33)
[2020-08-25] MEDS: DOCUSATE SODIUM 100 MG CAPSULE PO (16:33)
[2020-08-26] MEDS: IBUPROFEN 600 MG TABLET PO ×2 (05:28→17:29)
[2020-08-26 05:48] LABS: Hemoglobin 9.2 g/dL (12.0-15.0); Mean Corpuscular HGB Conc 32.9 g/dl (32-36); Mean Corpuscular Hemoglobin 26.4 pg (26-34); Mean Corpuscular Volume 80.5 fl (80-100); Mean Platelet Volume 9.4 fl (7.4-10.4); Platelet Count Result 269 k/mm3 (150-375); Red Blood Count 3.48 M/mm3 (4.2-5.4); Red Cell Distribution Width 17.6 % (11.5-14.5); White Blood Count 8.8 K/mm3 (4.5-10.0)
[2020-08-26 05:51] LABS: Basophils Percent Auto 0.3 % (0.2-1.2); Eosinophils Percent Auto 0.2 % (0-4.4); Hemoglobin 9.4 g/dL (12.0-15.0); Immature Granulocyte Absolute 0.05 K/mm3 (0.00-0.031); Immature Granulocyte Percent A 0.6 % (0-0.5); Lymphocytes Absolute Auto 1.63 K/mm3 (0.9-3.2); Lymphocytes Percent Auto 18.8 % (18.3-44.2); Mean Corpuscular HGB Conc 32.4 g/dl (32-36); Mean Corpuscular Hemoglobin 26.8 pg (26-34); Mean Corpuscular Volume 82.6 fl (80-100); Mean Platelet Volume 9.3 fl (7.4-10.4); Monocytes Absolute Auto 1.2 K/mm3 (0.1-0.6); Monocytes Percent Auto 13.3 % (2.6-8.5); Neutrophils Absolute Auto 5.8 K/mm3 (1.3-6.7); Neutrophils Percent Auto 66.8 % (45.5-73.1); Nucleated Red Blood Cells Absolute Auto 0.2 K/mm3 (0.0-0.012); Nucleated Red Blood Cells Perc 2.1 % (0.0-0.2); Platelet Count Result 249 k/mm3 (150-375); Red Blood Count 3.51 M/mm3 (4.2-5.4); Red Cell Distribution Width 17.8 % (11.5-14.5); White Blood Count 8.7 K/mm3 (4.5-10.0)
[2020-08-26 06:00] VITALS: BP 117/88; PULSE 87; RESP 16; TEMP 36.4; O2SAT 98
[2020-08-26 07:35] VITALS: BP 112/80; PULSE 79; RESP 16; TEMP 37.2; O2SAT 100
--- NOTE | 2020-08-26 07:50 | PM.OBPNVD ---
OB - PN: Subj Subjective Date/time seen: 08/26/20 07:50 Pain well controlled. Johnston out this am. Diet tolerated. No BM. OB - PN: Obj Data Labs CBC & Chem 7: 08/26/20 05:32 Labs: Laboratory Results - last 24 hr 08/23/20 08/26/20 08/26/20 05:46 05:32 05:32 WBC 8.8 8.7 RBC 3.48 L 3.51 L Hgb 9.2 L D 9.4 L Hct 28.0 L 29.0 L MCV 80.5 82.6 MCH 26.4 26.8 MCHC 32.9 32.4 RDW 17.6 H 17.8 H Plt Count 269 249 MPV 9.4 9.3 Immature Gran % (Auto) 0.6 H Neut % (Auto) 66.8 Lymph % (Auto) 18.8 [place] % (Auto) 13.3 H Eos % (Auto) 0.2 Baso % (Auto) 0.3 Lymph # (Auto) 1.63 [place] # (Auto) 1.2 H Eos # (Auto) 0.0 Baso # (Auto) 0.0 Abs Immat Gran (auto) 0.05 H Absolute Neuts (auto) 5.8 Absolute Nucleated RBC 0.2 H Nucleated RBC % 2.1 H Blood Type O Negative Antibody Screen Negative Screen Negative Baby's Blood Type O pos Baby's AXEL Negative Doses of RhIg Required 1 Crossmatch See Detail OB - PN A/P Assessment and Plan (1) Acute blood loss as cause of postoperative anemia: Code(s): D62 - Acute posthemorrhagic anemia Status: Acute Assessment and Plan: Labs appropriate/clinically stable. Will increase activity as tolerated. Likely home T/W. Time Spent With Patient Time: Total time spent is greater than 50% in coordination of care (as documented) at patient's floor/unit and/or counseling patient:
[2020-08-26 08:00] VITALS: PULSE 79; RESP 16; O2SAT 100
[2020-08-26] MEDS: ACETAMINOPHEN 325 MG TABLET 650 MG PO (08:07)
[2020-08-26] MEDS: POLYSACCHARIDE IRON COMPLEX 150 MG CAPSULE PO ×2 (08:07→17:31)
[2020-08-26] MEDS: MULTIVIT/MIN/PREN/FOL AC/IRON TABLET 1 TAB PO (08:07)
[2020-08-26] MEDS: DOCUSATE SODIUM 100 MG CAPSULE PO ×2 (08:07→17:31)
[2020-08-26] MEDS: BISACODYL 10 MG SUPPOSITORY RECTAL (10:00)
--- NOTE | 2020-08-26 13:45 | WPDANESPN ---
Anes - Prog Note Post-Op Date/Time: 08/26/20 13:45 Cardiovascular status: normal Respiratory status: normal Airway patency: baseline Mental status: baseline Post-Op hydration status: normal Vital Signs: Last Vital Signs Temp 37.2 C 08/26/20 07:35 Pulse 79 08/26/20 07:35 Resp 16 08/26/20 07:35 BP 112/80 08/26/20 07:35 Pulse Ox 100 08/26/20 07:35 Pain Score (VAS): 10 I/O: Intake & Output 08/25/20 08/26/20 08/26/20 23:59 07:59 15:59 Intake Total 1772 Output Total 425 1300 Balance 1347 -1300 Laboratory Tests 08/26/20 05:32 08/23/20 08/26/20 08/26/20 05:46 05:32 05:32 WBC 8.8 8.7 RBC 3.48 L 3.51 L Hgb 9.2 L D 9.4 L Hct 28.0 L 29.0 L MCV 80.5 82.6 MCH 26.4 26.8 MCHC 32.9 32.4 RDW 17.6 H 17.8 H Plt Count 269 249 MPV 9.4 9.3 Immature Gran % (Auto) 0.6 H Neut % (Auto) 66.8 Lymph % (Auto) 18.8 [place] % (Auto) 13.3 H Eos % (Auto) 0.2 Baso % (Auto) 0.3 Lymph # (Auto) 1.63 [place] # (Auto) 1.2 H Eos # (Auto) 0.0 Baso # (Auto) 0.0 Abs Immat Gran (auto) 0.05 H Absolute Neuts (auto) 5.8 Absolute Nucleated RBC 0.2 H Nucleated RBC % 2.1 H Blood Type O Negative Antibody Screen Negative Screen Negative Baby's Blood Type O pos Baby's AXEL Negative Doses of RhIg Required 1 Crossmatch See Detail Post-procedural complaints: none Patient Feedback: Patient satisfied with anesthetic care.
[2020-08-26 20:00] VITALS: BP 127/79; PULSE 82; RESP 16; TEMP 37.1; O2SAT 100
[2020-08-26] MEDS: HYDROcodone/acetaminophen (*CRX) 5-325 MG TABLET 1 TAB PO (22:16)
[2020-08-27] MEDS: IBUPROFEN 600 MG TABLET PO (04:51)
[2020-08-27 05:17] LABS: Hematocrit 27.2 % (37.0-47.0); Hemoglobin 8.8 g/dL (12.0-15.0)
--- NOTE | 2020-08-27 08:08 | PM.OBDSVD ---
DS: Admitting Diagnosis Admitting Diagnosis Admitting Diagnosis: OB - DS: Summary OB Procedures : None OB Procedures Intrapartum: OB Procedures: : Transfusion Peripartum Data Procedures: Procedures Operation Date: 08/22/20 12:00 Actual Procedure Side Surgeon p Section Not Applicable Zeus Dash MD Operation Date: 08/25/20 08:30 <No data on this case meets the specified criteria> Time Spent with Patient Time attestation: Total time spent providing and/or coordinating discharge services: DS: Data Data Completed and Pending Labs on day of discharge: Labs from last 24 hours 08/27/20 04:51 Hgb 8.8 L Hct 27.2 L Discharge Plan Discharge Discharging Clinician: Zeus Dash Patient Disposition: Home, Self-Care Activity: as tolerated Diet: as tolerated Wound Care Instructions: other - see discharge instructions Discharge Instructions: Education: Mom and Baby Guide Given to: Mother Follow-Up: Call your delivering provider's office for an appointment to be seen in: 1 Week For incision check and dressing removal and then in three weeks for regular exam Mom and baby should come to the [facility] for the follow-up appointment. Appointment Date/Time: August at 11:00 am What to expect at your follow-up visit: Blood Pressure Check Physical Assessment Call [phone] if you are unable to keep your appointment time. BREAST CARE: * Wear a snug supportive bra. * For engorgement discomfort: Breast Feeding: * Apply warm moist washcloths * Express milk as needed to relieve engorgement * Wear loose clothing Bottle Feeding: * May apply ice packs * For sore nipples: * Identify correct latch-on * Apply warm moist washcloths before and after nursing * Air dry nipples after nursing * May apply Lansinoh cream to nipples ABDOMINAL INCISION: (if applicable) * Allow incision to air dry * Do NOT use lotions for powders on your incision * When showering, allow soap and water to run over the incision, but do not wash incision EPISIOTOMY/PERINEAL CARE: * Until bleeding stops, use your elsie bottle after urinating * Change your pad frequently throughout the day * No tub baths until seen by your physician - You may shower ACTIVITY: * Rest as much as possible. * Do not exercise or lift anything heavier than your baby (such as laundry or other children.) * Avoid stairs or driving as much as possible for about 2 weeks. * Do not put anything into the vagina. No douching, tampons, or sexual activity until seen by physician. NOTIFY PHYSICIAN IF YOU HAVE ANY QUESTIONS OR IF ANY OF THE FOLLOWING SYMPTOMS OCCUR: * If your incision becomes red, swollen, or more painful than what you have experienced in the hospital. * If your vaginal bleeding becomes foul smelling. * If your vaginal bleeding becomes more heavy than a period or if your bleeding changes from pink to bright red. However, you may pass an occasional walnut-sized clot once or twice for the first week . * If you experience a sharp, shooting pain in your calves. * If you discover a hard, reddened area on your breast or if you experience flu-like symptoms. DIET: * Eat regular, well-balanced meals. * Drink plenty of fluids daily. If , drink to thirst. Patient Instructions: Antibiotic Form, (DC) Stand Alone Forms: General Discharge Information Follow-up/Referrals: Daniel Miguel MD [Physician] - 1 Week (for staple removal) Discharge Medications: New hydrocodone-acetaminophen 5-325 mg Tablet 1 tablet PO Q3H Qty: 20 RF: 0 ibuprofen 600 mg Tablet 600 mg PO Q6H Qty: 30 RF: 0 Continued ferrous sulfate [Iron (ferrous sulfate)] 325 mg (65 mg iron) Tablet 325 mg PO DAILY RF: 0 PNV [facility]#[id number]
[2020-08-27 08:35] VITALS: BP 116/80; PULSE 73; RESP 16; TEMP 36.7; O2SAT 100
[2020-08-27] MEDS: ACETAMINOPHEN 325 MG TABLET 650 MG PO (09:38)
[2020-08-27] MEDS: MULTIVIT/MIN/PREN/FOL AC/IRON TABLET 1 TAB PO (09:39)
[2020-08-27] MEDS: SIMETHICONE 80 MG TAB.CHEW PO (09:39)
[2020-08-27] MEDS: DOCUSATE SODIUM 100 MG CAPSULE PO (09:39)
[2020-08-27] MEDS: POLYSACCHARIDE IRON COMPLEX 150 MG CAPSULE PO (09:40)
[2020-08-27 09:45] VITALS: PULSE 73; RESP 16; O2SAT 100
== END 2020-08-27 11:25 | disposition home or self-care (01) | DRG 540 ==
LOC: ANHOBPP 10:01 → ANHLDR 14:46 → ANHOB2 17:48
PROVIDERS: Admitting Provider Obstetrics & Gynecology; Visit Provider Obstetrics & Gynecology
PROC: 10D00Z1 Extraction of Products of Conception, Low, Open Approach (ICD-10-PCS; CPT 59514; principal; 2020-08-22 12:00)
PROC: 0UT94ZZ Resection of Uterus, Percutaneous Endoscopic Approach (ICD-10-PCS; principal; 2020-08-25 08:30)
DX: O32.8XX0 Maternal care for other malpresentation of fetus, not applicable or unspecified (principal); Z37.0 Single live birth; Z3A.39 39 weeks gestation of pregnancy; O90.2 Hematoma of obstetric wound; O90.81 Anemia of the puerperium; D62 Acute posthemorrhagic anemia; O69.81X0 Labor and delivery complicated by cord around neck, without compression, not applicable or unspecified; O99.62 Diseases of the digestive system complicating childbirth; K21.9 Gastro-esophageal reflux disease without esophagitis
CPT/HCPCS: 36415; 36430; 85014; 85018; 85025; 85027; 85461; 86592; 86850; 86900; 86901; 86920; 90384; A9270; J0131; J0330; J0690; J1100; J1170; J1885; J2250; J2270; J2274; J2370; J2405; J2590; J2704; J2710; J2790; J3010; J7030; J7050; J7120; P9016

== ENCOUNTER 2020-11-08 09:18 | Emergency (ER) | payer OTHER, SELFPAY ==
--- NOTE | ~2020-11-08 | US_ITS ---
EXAMINATION: US pelvic complete w TV DATE: 11/08/2020 12:22 INDICATION: Pelvic plain and vaginal bleeding 2 months post . TECHNIQUE: Multiple transabdominal and endovaginal sonographic images of the pelvis were obtained. COMPARISON: None. FINDINGS: The uterus measures 8.7 x 7.4 x 5.6 cm. The endometrial complex measures 12 mm in thickness. 3 mm na bothian cyst at the cervix. Prominent parametrial vessels are seen in the left and right sides of the uterus likely related to recent . The right ovary measures 4.4 x 2.7 x 2.5 cm. The left ova ry measures 2.3 x 1.8 x 1.8 cm. Vascular flow is identified in both ovaries on color Doppler. Trace amount of likely physiologic free fluid in the cul-de-sac. IMPRESSION: 1. Normal pelvic ultrasound. Reviewed, dictated and finalized at location A.
--- NOTE | 2020-11-08 09:28 | ED.FEMALEGU ---
HPI - Female Genitourinary General Chief complaint: Vaginal Bleeding Stated complaint: vag bleeding Time Seen by Provider: 11/08/20 09:27 Source: patient Mode of arrival: EMS Limitations: no limitations History of Present Illness HPI Narrative: The patient is a 25-year-old female G3, P2 who presents for evaluation of vaginal bleeding. Patient states that she experienced onset of heavy vaginal bleeding yesterday, worsened this morning. Patient also reporting some mild lower abdominal cramping without radiation of the pain to the back or upper abdomen. She denies nausea, vomiting. She reports mild lightheadedness was seen the amount of vaginal bleeding this morning. She denies passage of large clots. She does not believe she is . She states that she did not have a period last month, and that there is a possibility she may be . She denies dysuria. She denies vaginal discharge or bleeding. She denies history of sexually transmitted infection. She sees Dr. Miguel and Dr. Dash delivered her last baby via C section 6 months previously. Related Data Allergies Allergy/AdvReac Type Severity Reaction Status Date / Time No Known Allergies Allergy Verified 11/08/20 09:34 Review of Systems Review of Systems: CONSTITUTIONAL: Denies fever, chills, or sweats. EYES: Denies visual changes, redness, or discharge. ENT: Denies rhinorrhea, congestion, sore throat, or otalgia. CARDIOVASCULAR: Denies chest pain, palpitations, or edema. RESPIRATORY: Denies cough or dyspnea. GASTROINTESTINAL: Reports pelvic pain, denies nausea, vomiting or diarrhea GENITOURINARY: Denies dysuria or hematuria. Reports heavy vaginal bleeding without other discharge. SKIN: Denies rash or itching. MUSCULOSKELETAL: Denies back pain, joint pain, or myalgia. NEUROLOGIC: Denies headache, numbness, or weakness. [facility] Past Medical History Medical History GERD (gastroesophageal reflux disease) History of supraventricular tachycardia Palpitations Family History Family History Mother Cancer Hypothyroid Father Cancer Social History Social History Smoking status: Never smoker Second hand tobacco smoke exposure: No Substance use: never Gender identity (if verbalized by the patient): Female Spiritual care concerns: No Exam Narrative: GENERAL: Awake, alert, conversant HEAD: Normocephalic, atraumatic. EYES: PERRLA and EOMI. ENT: Nares clear, no rhinorrhea or epistaxis. Mucous membranes moist. NECK: Supple. CHEST: No respiratory distress, breathing even and non labored HEART: Regular rate, sinus rhythm ABDOMEN:Non distended, mildly tender in the suprapubic area, no guarding, nonrigid, no rebound : Labia majora and minora normal without lesions. Vagina with + blood. No cervical motion tenderness. No blood clots. No brisk bleeding. No adnexal tenderness or fullness bilaterally. No other discharge present. EXTREMITIES: Normal range of motion. No edema. SKIN: Warm, dry, no rash. NEURO:No focal deficits. Alert and oriented x3 Course Vital Signs Vital signs: Vital Signs Temperature 36.4 C L 11/08/20 09:29 Pulse Rate 95 11/08/20 09:29 Respiratory Rate 18 11/08/20 09:29 Blood Pressure 116/71 11/08/20 09:29 Pulse Oximetry 100 11/08/20 09:29 Temperature 36.4 C L 11/08/20 09:29 Pulse Rate 99 11/08/20 11:36 Respiratory Rate 18 11/08/20 09:29 Blood Pressure 97/72 L 11/08/20 11:36 Pulse Oximetry 100 11/08/20 09:29 MDM - Female Genitourinary MDM Narrative Medical decision making narrative: Patient is a 25-year-old female that presented for evaluation of heavy vaginal bleeding. At the time of assessment, ABCs are intact and vital signs are stable. Patient is not significantly hypotensive or tachycardic. Her pelvic exam is notable for approx
[2020-11-08 09:29] VITALS: BP 116/71; PULSE 95; RESP 18; TEMP 36.4; O2SAT 100
[2020-11-08 09:53] LABS: Basophils Percent Auto 0.4 % (0.2-1.2); Eosinophils Absolute Auto 0.1 K/mm3 (0-0.3); Eosinophils Percent Auto 1.8 % (0-4.4); Hematocrit 40.8 % (37.0-47.0); Hemoglobin 13.9 g/dL (12.0-15.0); Immature Granulocyte Absolute 0.01 K/mm3 (0.00-0.031); Immature Granulocyte Percent A 0.1 % (0-0.5); Lymphocytes Absolute Auto 2.09 K/mm3 (0.9-3.2); Lymphocytes Percent Auto 30.6 % (18.3-44.2); Mean Corpuscular HGB Conc 34.1 g/dl (32-36); Mean Corpuscular Hemoglobin 26.6 pg (26-34); Mean Platelet Volume 9.5 fl (7.4-10.4); Monocytes Absolute Auto 0.6 K/mm3 (0.1-0.6); Monocytes Percent Auto 8.8 % (2.6-8.5); Neutrophils Percent Auto 58.3 % (45.5-73.1); Platelet Count Result 297 k/mm3 (150-375); Red Blood Count 5.23 M/mm3 (4.2-5.4); Red Cell Distribution Width 14.6 % (11.5-14.5); White Blood Count 6.8 K/mm3 (4.5-10.0)
[2020-11-08 10:09] LABS: INR 0.9; Prothrombin Time 11.9 Seconds (11.1-14.7)
[2020-11-08 10:10] LABS: Partial Thromboplastin Time 32.6 SECONDS (22.3-36.8)
[2020-11-08 10:15] LABS: Add Urine Microscopic? YES; Appearance Urine Cloudy (Clear); Bilirubin Urine Negative (Negative); Blood Urine 3+ (Negative); Color Urine Red (Yellow); Glucose Urine UA 1+ mg/dL (Negative); Ketones Urine Negative (Negative); Leukocyte Esterase Ur Negative LEU/UL (Negative); Nitrate Urine Negative (Negative); Protein Urine 3+ mg/dL (Negative); RBC Urine >75 /hpf (0-2); Specific Grav Ur 1.026 (1.001-1.035); Urobilinogen Urine Negative mg/dL (<2.0); WBC Urine 0-3 /hpf
[2020-11-08 10:26] LABS: Beta HCG Quantitative < 2.39 mIU/ML
[2020-11-08 11:34] VITALS: BP 107/72; BP 111/70; PULSE 87
[2020-11-08 11:36] VITALS: BP 97/72; PULSE 99
--- NOTE | 2020-11-08 11:37 | PC.NURSE ---
abiodun in lab will add on cmp.
[2020-11-08 11:53] LABS: Alanine Aminotransferase 23 U/L (4-35); Albumin Level 4.8 g/dL (3.5-5.1); Alkaline Phosphatase 79 U/L (38-126); Anion Gap 14 mmol/L (8-16); Aspartate Amino Transferase 24 U/L (14-36); Bilirubin,Total 0.7 mg/dL (0.2-1.3); Blood Urea Nitrogen 14 mg/dL (7-17); Calcium 9.6 mg/dL (8.4-10.2); Carbon Dioxide 20 mmol/L (22-30); Chloride 104 mmol/L (98-107); Estimated CRCL calculation 94 ml/min; Estimated Glomerular Filt Rate > 60; Glucose 100 mg/dL (65-110); Potassium 3.8 mmol/L (3.4-5.0); Sodium 138 mmol/L (137-145)
[2020-11-08] MEDS: TRANEXAMIC ACID 1,000MG/ISO100 1,000 MG/100 ML BAG 200 MG IVPB (13:58)
[2020-11-08 14:04] LABS: Basophils Percent Auto 0.5 % (0.2-1.2); Eosinophils Percent Auto 0.7 % (0-4.4); Hematocrit 41.1 % (37.0-47.0); Immature Granulocyte Absolute 0.02 K/mm3 (0.00-0.031); Immature Granulocyte Percent A 0.3 % (0-0.5); Lymphocytes Absolute Auto 1.37 K/mm3 (0.9-3.2); Lymphocytes Percent Auto 22.5 % (18.3-44.2); Mean Corpuscular HGB Conc 34.1 g/dl (32-36); Mean Corpuscular Hemoglobin 26.5 pg (26-34); Mean Corpuscular Volume 77.8 fl (80-100); Mean Platelet Volume 9.5 fl (7.4-10.4); Monocytes Absolute Auto 0.5 K/mm3 (0.1-0.6); Monocytes Percent Auto 7.9 % (2.6-8.5); Neutrophils Absolute Auto 4.2 K/mm3 (1.3-6.7); Neutrophils Percent Auto 68.1 % (45.5-73.1); Platelet Count Result 302 k/mm3 (150-375); Red Blood Count 5.28 M/mm3 (4.2-5.4); Red Cell Distribution Width 14.6 % (11.5-14.5); White Blood Count 6.1 K/mm3 (4.5-10.0)
[2020-11-08 14:29] VITALS: BP 126/81; PULSE 82; RESP 14; O2SAT 98
--- NOTE | 2020-11-08 14:30 | PC.NURSE ---
tranexmiC ACID STOPPED PER PT REQUEST. med appro 3/4 infused. pt c/o heart racing and palpitations during infusion. no ectopy observed at this time. vs stable. will notify ed provider and primary nurse
== END 2020-11-08 14:58 | disposition home or self-care (01) ==
PROVIDERS: Emergency Provider Emergency Medicine
DX: N93.9 Abnormal uterine and vaginal bleeding, unspecified (principal); K21.9 Gastro-esophageal reflux disease without esophagitis
CPT/HCPCS: 36415; 76830; 76856; 80053; 81001; 84702; 85025; 85461; 85610; 85730; 86880; 86902; 96365; 99284

== ENCOUNTER 2022-02-08 14:22 | Emergency (ER) | payer MEDICAID, SELFPAY ==
--- NOTE | ~2022-02-08 | US_ITS ---
EXAMINATION: US OB <= 14 weeks fetus INDICATION: vaginal bleeding, lower abd pain TECHNIQUE: Sonography of the pelvis was performed by transabdominal and transvaginal techniques. COMPARISON: None. RESULT: Uterus: Orientation: Anteverted. 14.6 x 7.8 x 6.3 cm. Myometrium: homogeneous echogenicity. The cerv ix is long, measuring 4.2 cm. Fluid/debris present within the endocervical canal. Gestation: - Intrauterine gestational sac: Single present. - Yolk sac: 0.31 cm . - Embryo: Single present. - Guffey rump length: 0.72 cm, corresponding gestational age 6 weeks, 4 days. -Gestational heart rate: present 132 bpm. -Subgestational hematoma: Present, measuring 1.1 x 0.6 x 0.3 cm. Right ovary: 4.4 x 2.7 x 2.3 cm. Normal sonographic appearance with physiologic follicles. . Isoec hoic 2.1 cm ovarian lesions with prominent peripheral flow may represent corpus luteal cysts. Left ovary: 2.5 x 1.0 x 1.3 cm. Normal sonographic appearance with physiologic follicles. . . Pelvis free fluid: None. IMPRESSION: Single, live intrauterine gestation. 1.1 cm subgestational hematoma. Fluid/debris in the endocervical canal. Estimated Gestational Age: 6 weeks, 4 days by crown rump length. ELISSA by ultrasound 09/30/2022. Reviewed, dictated and finalized at location [facility]. [employer]ENEFITS ADMINISTRATOR IMPRESSION: Single, live intrauterine gestation. 1.1 cm subgestational hematoma. Fluid/debr is in the endocervical canal. Estimated Gestational Age: 6 weeks, 4 days by crown rump length. ELISSA by ultras ound 09/30/2022.
[2022-02-08 14:59] VITALS: BP 112/71; PULSE 83; RESP 16; TEMP 36.6; O2SAT 100
[2022-02-08 16:49] VITALS: BP 108/67; PULSE 87; RESP 15; O2SAT 98
[2022-02-08] MEDS: SODIUM CHLORIDE 0.9% IV 1,000 ML 999 ML IV CONT (16:57)
[2022-02-08 16:59] LABS: Basophils Percent Auto 0.4 % (0.2-1.2); Eosinophils Percent Auto 0.1 % (0-4.4); Hematocrit 37.1 % (37.0-47.0); Hemoglobin 12.8 g/dL (12.0-15.0); Immature Granulocyte Absolute 0.03 K/mm3 (0.00-0.031); Immature Granulocyte Percent A 0.3 % (0-0.5); Lymphocytes Absolute Auto 1.67 K/mm3 (0.9-3.2); Lymphocytes Percent Auto 17.1 % (18.3-44.2); Mean Corpuscular HGB Conc 34.5 g/dl (32-36); Mean Corpuscular Hemoglobin 26.4 pg (26-34); Mean Corpuscular Volume 76.5 fl (80-100); Mean Platelet Volume 9.2 fl (7.4-10.4); Monocytes Absolute Auto 0.7 K/mm3 (0.1-0.6); Neutrophils Absolute Auto 7.4 K/mm3 (1.3-6.7); Neutrophils Percent Auto 75.1 % (45.5-73.1); Platelet Count Result 372 k/mm3 (150-375); Red Blood Count 4.85 M/mm3 (4.2-5.4); Red Cell Distribution Width 14.9 % (11.5-14.5); White Blood Count 9.8 K/mm3 (4.5-10.0)
[2022-02-08 17:02] LABS: Add Urine Microscopic? NO; Appearance Urine Clear (Clear); Bilirubin Urine Negative (Negative); Blood Urine Negative (Negative); Color Urine Yellow (Yellow); Glucose Urine UA Negative (Negative); Ketones Urine Negative (Negative); Leukocyte Esterase Ur Negative LEU/UL (Negative); Nitrate Urine Negative (Negative); Protein Urine Negative (Negative); Specific Grav Ur <= 1.005 (1.001-1.035); Urobilinogen Urine 0.2 mg/dL (<2.0); pH Urine 6.5 (5.0-9.0)
[2022-02-08 17:10] LABS: Alanine Aminotransferase 15 U/L (6-35); Alkaline Phosphatase 45 U/L (38-126); Anion Gap 10 mmol/L (8-16); Aspartate Amino Transferase 18 U/L (14-36); Bilirubin,Total 0.7 mg/dL (0.2-1.3); Blood Urea Nitrogen 6 mg/dL (7-17); Calcium 9.4 mg/dL (8.4-10.2); Carbon Dioxide 24 mmol/L (22-30); Chloride 100 mmol/L (98-107); Estimated CRCL calculation 127 ml/min; Estimated Glomerular Filt Rate > 60; Glucose 98 mg/dL (65-110); Potassium 3.4 mmol/L (3.4-5.0); Sodium 134 mmol/L (137-145)
--- NOTE | 2022-02-08 17:10 | ED.NAVMDI ---
HPI - Nausea/Vomiting/Diarrhea General Chief complaint: Nausea/Vomiting/Diarrhea Stated complaint: preg. vaginal discharge Time Seen by Provider: 02/08/22 16:39 History of Present Illness HPI Narrative: 26-year-old female history of GERD presents to the emergency room for evaluation of vaginal bleeding and vomiting. Endorses brown vaginal blood intermittently for 4 days associated with left lower quadrant abdominal discomfort. States had a quick abdominal ultrasound to verify intrauterine , but has not had follow-up with an TRACTOR TRAILER OPERATOR as of today. Patient states that she has been experiencing intermittent bilious and nonbloody vomiting for 1 week, has progressively gotten worse. Denies any back pain or dysuria. Patient is a A1 (miscarriage). No concerns of STIs. Related Data Allergies Allergy/AdvReac Type Severity Reaction Status Date / Time No Known Allergies Allergy Verified 02/08/22 16:50 Review of Systems Review of Systems: CONSTITUTIONAL: Denies fever, chills, or sweats. EYES: Denies visual changes, redness, or discharge. ENT: Denies rhinorrhea, congestion, sore throat, or otalgia. CARDIOVASCULAR: Denies chest pain, palpitations, or edema. RESPIRATORY: Denies cough or dyspnea. GASTROINTESTINAL: Reports abdominal pain, nausea, vomiting GENITOURINARY: Denies dysuria or hematuria. SKIN: Denies rash or itching. MUSCULOSKELETAL: Denies back pain, joint pain, or myalgia. NEUROLOGIC: Denies headache, numbness, dizziness, or weakness. PSYCHIATRIC: Denies anxiety or depression. PMFSH Past Medical History Medical History GERD (gastroesophageal reflux disease) History of supraventricular tachycardia Palpitations Family History Family History Mother Cancer Hypothyroid Father Cancer Social History Social History Smoking status: Never smoker Second hand tobacco smoke exposure: No Substance use: never Gender identity (if verbalized by the patient): Female Spiritual care concerns: No Exam Narrative: GENERAL: Well-appearing, well-nourished, no physical limitations, and in no acute distress. HEAD: Normocephalic, atraumatic. EYES: Conjunctivae normal, PERRLA and EOMI. CHEST: Clear to auscultation. No respiratory distress. No wheezes rales or rhonchi. No tenderness. HEART: Regular rate and rhythm. No murmur heard. Normal peripheral pulses. ABDOMEN: Soft, LLQ tenderness, nondistended, normal active bowel sounds. : BACK: No CVA tenderness EXTREMITIES: Normal range of motion. No edema. No clubbing or cyanosis SKIN: Warm, dry, no rash. No noted wounds NEURO: No focal deficits. Alert and oriented x3. MAEW. CN's II-XI intact bilaterally, normal gait PSYCH: Cooperative. Normal mood and affect. Course Vital Signs Vital signs: Vital Signs Temperature 36.6 C 02/08/22 14:59 Pulse Rate 83 02/08/22 14:59 Respiratory Rate 16 02/08/22 14:59 Blood Pressure 112/71 02/08/22 14:59 Pulse Oximetry 100 02/08/22 14:59 Oxygen Delivery Autopap 02/08/22 14:59 Temperature 36.6 C 02/08/22 14:59 Pulse Rate 87 02/08/22 16:49 Respiratory Rate 15 02/08/22 16:49 Blood Pressure 108/67 02/08/22 16:49 Pulse Oximetry 98 02/08/22 16:49 Oxygen Delivery Autopap 02/08/22 14:59 MDM - Nausea/Vomiting/Diarrhea Lab Data 02/08/22 16:52 02/08/22 16:52 Labs: Lab Results 02/08/22 02/08/22 02/08/22 Range/Units 16:52 16:52 16:52 WBC 9.8 (4.5-10.0) K/mm3 RBC 4.85 (4.2-5.4) M/mm3 Hgb 12.8 (12.0-15.0) g/dL Hct 37.1 (37.0-47.0) % MCV 76.5 L (80-100) fl MCH 26.4 (26-34) pg MCHC 34.5 (32-36) g/dl RDW 14.9 H (11.5-14.5) % Plt Count 372 (150-375) k/mm3 MPV 9.2 (7.4-10.4) fl Immature Gran % (Auto) 0.3 (0-0.5) % Neut % (Auto) 75.1 H (4
[2022-02-08 19:08] VITALS: BP 107/75; PULSE 84; RESP 14; O2SAT 99
== END 2022-02-08 19:09 | disposition home or self-care (01) ==
PROVIDERS: Emergency Provider Nurse Practitioner Family
DX: O46.8X1 Other antepartum hemorrhage, first trimester (principal); O21.9 Vomiting of pregnancy, unspecified; O99.611 Diseases of the digestive system complicating pregnancy, first trimester; K21.9 Gastro-esophageal reflux disease without esophagitis; Z3A.01 Less than 8 weeks gestation of pregnancy
CPT/HCPCS: 36415; 76801; 80053; 81003; 81025; 84702; 85025; 99284; J7030